=== PATIENT | male | born 1965 | race Caucasian/White ===

== ENCOUNTER 2017-10-27 11:30 | Emergency (ER) | payer MEDICAID ==
[2017-10-27] MEDS ORDERED: KETOROLAC 30MG/ML VIAL IV ONE (12:00)
[2017-10-27 12:18] LABS: BASOPHILS % 0.7 % (0.0-2.0); EOSINOPHILS % 4.9 % (0.0-5.0); HEMATOCRIT. 43.8 % (42.0-52.0); HEMOGLOBIN. 14.4 g/dL (14.0-18.0); LYMPHOCYTES % 30.3 % (20.0-50.0); MEAN CORPUSCULAR HEMOGLOBIN 26.7 pg (28.0-32.0); MEAN CORPUSCULAR VOLUME 81.1 fL (80.0-94.0); MEAN PLATELET VOLUME 7.8 fl (7.4-10.4); MONOCYTES % 7.8 % (2.0-8.0); NEUTROPHILS % 56.3 % (40.0-76.0); PLATELET 180 x1000/uL (130-400); RED BLOOD CELL COUNT 5.41 mill/uL (4.7-6.1); RED CELL DISTRIBUTION WIDTH 14.7 % (11.6-14.6)
[2017-10-27 12:25] LABS: CHLORIDE 109 mEq/L (98-107)
[2017-10-27 16:30] VITALS: BP 119/85
== END 2017-10-27 16:36 | disposition home or self-care (01) ==
LOC: ER 11:30
DX: D17.22 Benign lipomatous neoplasm of skin and subcutaneous tissue of left arm (principal); M65.222 Calcific tendinitis, left upper arm
CPT/HCPCS: 36415; 73202; 80053; 85025; 85651; 96374; 99285; J1885